=== PATIENT | female | born 1940 | race Caucasian/White ===

== ENCOUNTER 2023-02-23 10:54 | Emergency (ER) | payer MEDICARE, OTHER, SELFPAY ==
[2023-02-23 11:06] VITALS: BP 154/69; PULSE 67; RESP 18; TEMP 36.4; O2SAT 98; BMI 26.8
[2023-02-23 13:35] VITALS: BP 186/83; PULSE 75; O2SAT 97
--- NOTE | 2023-02-23 13:52 | CRLHL7_ITS ---
For Patients: As a result of the Century Cures Act, medical imaging exams and procedure reports are released immediately into your electronic medical record. You may view this report before your referring provider. If you have questions, please contact your health care provider. INDICATION: Right neck mass. TECHNIQUE: CT of the neck from the skull base to the thoracic inlet following administration of cc iodinated intravenous contrast. COMPARISON: None available. FINDINGS: Streak artifact emanating from dental amalgam limits evaluation of adjacent structures. Within this limitation, no suspicious mucosal asymmetry or enhancement. Masslike density in the right medial supraclavicular region (series 3, image 61) is favored to represent tortuosity of the right internal jugular vein with mixing artifact. Small volume air layers within the ante dependent internal jugular veins, likely iatrogenic related to intravenous injection. No pathologically enlarged cervical lymph nodes. Normal parotid and submandibular glands. Unremarkable thyroid. The lung apices are clear. The major vascular structures are normal in appearance. No suspicious osseous lesion is identified. IMPRESSION: 1. Masslike density right medial supraclavicular region is favored to represent tortuosity of the right internal jugular vein with contrast mixing artifact. Consider ultrasound correlation to definitively exclude a lesion immediately adjacent to the internal jugular vein. 2. Otherwise, no suspicious soft tissue mass or pathologically enlarged cervical lymph node. Please note that all CT scans at this facility use dose modulation, iterative reconstruction, and/or weight-based dosing when appropriate to reduce radiation dose to as low as reasonably achievable. Dictated by Rodrick Ng MD @ 02/23/2023 3:31:29 PM (Electronically Signed)
[2023-02-23 14:17] LABS: Basophils Percent Auto 0.5 % (0.0-3.0); Hematocrit 46.5 % (33.0-51.0); Hemoglobin* 15.2 gm/dL (12.0-16.0); Lymphocytes Percent Auto 25.5 % (20-44); Mean Corpuscular HGB Conc 33 gm/dL (32-36); Mean Corpuscular Hemoglobin 29 pg (26-34); Mean Corpuscular Volume 90 fL (80-100); Monocytes Percent Auto 9.3 % (0.0-11.0); Neutrophils Percent Auto 62.7 % (42.0-72.0); Platelet Count* 170 K/uL (140-440); RDW Coefficient of Variation % 13.1 % (11.5-15.5); Red Blood Count 5.19 m/uL (4.00-5.20)
[2023-02-23 14:21] LABS: Slide Review Reflex No
[2023-02-23 14:31] LABS: Chloride* 106 mmol/L (96-114)
[2023-02-23 14:32] LABS: Sodium* 138 mmol/L (135-149)
[2023-02-23 14:34] LABS: Creatinine* 0.6 mg/dL (0.5-1.5); Est. Creatinine Clearance* 30.62; Estimated Glomerular Filt Rate 89 ml/min
[2023-02-23 14:35] LABS: Anion Gap 6 mEq/L (7-15); Blood Urea Nitrogen* 25 mg/dL (7-30); Carbon Dioxide* 26 mmol/L (20-32); Glucose* 74 mg/dL (60-115)
--- NOTE | 2023-02-23 14:57 | ED_ITS ---
HPI - General Adult General Date Seen: 02/23/23 Chief complaint: Ear/Nose/Throat Problem Stated complaint: Possible throat cancer Time Seen by Provider: 02/23/23 13:31 Source: patient Mode of arrival: ambulatory Limitations: no limitations History of Present Illness HPI narrative: Patient is an 82-year-old woman who tells me that she has been moving around quite a bit for the past few years with her son. They landed in [place] in November. She says since that time she has been having a sensation like something is growing in the right side of her throat up toward her ear. When asked if she is having difficulty swallowing she says ?not yet. Her weight has been stable. She does not have pain in the throat although she says sometimes her ear hurts a little bit. She smoked for many years, quit in 2012. She says that she has been wanting to get this checked out for several months but today was the 1st day that she could get to the hospital. She does not have primary care in the area, denies that she takes any medications or has any significant health history. Related Data Home Medications Medication Instructions Recorded Confirmed No Known Home Medications 02/23/23 02/23/23 Allergies Allergy/AdvReac Type Severity Reaction Status Date / Time codeine Allergy Verified 02/23/23 11:10 [facility] Social History Smoking Status: Former smoker What tobacco products do you use: cigarettes Smoking quit date/years: <= 15 years ago Do you use any of these nicotine containing products: None Second hand tobacco smoke exposure: No How often do you have a drink containing alcohol: 2-4 times a month How many standard drinks containing alcohol do you have on a typical day: 1 or 2 How often do you have six or more drinks on one occasion: Never AUDIT-C Alcohol total score: 2 Non-prescribed substance use: denies use Exam Narrative: Exam Narrative: Vital signs as noted above. In general, an alert, nontoxic woman. Voice is normal. Head: Normocephalic, atraumatic. Eyes: Pupils are equal reactive. Extraocular movements are full. Conjunctivae are normal. ENT: Mucous membranes are moist. Throat is normal. Neck: Neck is supple, she does have a firm nontender mass on the right side of her neck which does not seem to be significantly mobile. No overlying erythema, no fluctuance. No stridor. Heart: Regular rate and rhythm. No murmur or rub. Lungs: Clear bilaterally. No increased work of breathing, crackles or wheezes. Abdomen: Soft and nontender. No organomegaly. Extremities: Well perfused. No edema. No calf tenderness. Pulses intact. Neurologic: Patient is alert and oriented to person and place. Speech is fluent. Face is symmetric. Moves all extremities equally. Affect: Flat. Skin: Warm and dry. Well perfused. Const: Vital Signs, click to edit/add: Vital Signs - 24 hr 02/23/23 11:06 02/23/23 13:35 Temperature 97.6 F Pulse Rate [Pulse Oximeter] 67 75 Respiratory Rate 18 Blood Pressure [[facility]] 154/69 H 186/83 H Pulse Oximetry 98 97 Oxygen Delivery Me thod Room Air Room Air Documenting provider has reviewed patient's vital signs: yes Course Course ED Course: I elected to do a CT scan, so an IV was placed, CBC showed a white count of 4, normal platelets and normal hemoglobin and metabolic panel was within normal limits. Creatinine was 0.6. She went on have a CT scan with contrast. This is read by Radiology is not showing anything diagnostic of mass or malignancy. They note a ?masslike density near the right subclavian which they feel is likely due to a tortuous jugular vein. I went back and reexamined her, she still has that area that I felt earlier but on this exam she said that now she remembers that she has a device placed there from when she had blood clots to make sure that they did not go to her brain. This appears to be an old physical finding. I do not feel any other masses down closer to the subclavian, and I think overall it is reasonable to let her go home, I have encouraged primary care follow-up for reassessment and they can decide whether not to pursue an ultrasound at that time. Vital Signs Vital signs: Initial Vital Signs Temperature 97.6 F 02/23/23 11:06 Temperature Source Temporal Artery Scan 02/23/23 11:06 Pulse Rate 67 02/23/23 11:06 Respiratory Rate 18 02/23/23 11:06 Blood Pressure 154/69 H 02/23/23 11:06 Blood Pressure Mean 97 02/23/23 11:06 Blood Pressure Position Sitting 02/23/23 11:06 Pulse Oximetry 98 02/23/23 11:06 Oxygen Delivery Method Room Air 02/23/23 11:06 Vital Signs Temperature 97.6 F 02/23/23 11:06 Pulse Rate 67 02/23/23 11:06 Respiratory Rate 18 02/23/23 11:06 Blood Pressure 154/69 H 02/23/23 11:06 Pulse Oximetry 98 02/23/23 11:06 Oxygen Delivery Method Room Air 02/23/23 11:06 Temperature 97.6 F 02/23/23 11:06 Pulse Rate 75 02/23/23 13:35 Respiratory Rate 18 02/23/23 11:06 Blood Pressure 186/83 H 02/23/23 13:35 Pulse Oximetry 97 02/23/23 13:35 Oxygen Delivery Method Room Air 02/23/23 13:35 Medical Decision Making Lab Data Labs: Lab Results 02/23/23 Range/Units 14:11 WBC 4.00 L (4.50-11.00) K/uL RBC 5.19 (4.00-5.20) m/uL Hgb 15.2 (12.0-16.0) gm/dL Hct 46.5 (33.0-51.0) % MCV 90 (80-100) fL MCH 29 (26-34) pg MCHC 33 (32-36) gm/dL RDW Coeff of Rick 13.1 (11.5-15.5) % Plt Count 170 (140-440) K/uL Neut % (Auto) 62.7 (42.0-72.0) % Lymph % (Auto) 25.5 (20-44) % Beauregard % (Auto) 9.3 (0.0-11.0) % Eos % (Auto) 2.0 (0.0-7.0) % Baso % (Auto) 0.5 (0.0-3.0) % Neut # (Auto) 2.50 (1.7-7.0) K/uL Lymph # (Auto) 1.00 (0.90-2.90) K/uL Beauregard # (Auto) 0.40 (0.00-0.90) K/UL Eos # (Auto) 0.10 (0.00-0.50) K/uL Baso # (Auto) 0.00 (0.00-0.30) K/uL Abs Immat Gran (auto) 0.00 (0.00-0.30) K/uL Imm/Tot Granulo (auto) 0.0 % Sodium 138 (135-149) mmol/L Potassium 4.0 (3.6-5.1) mmol/L Chloride 106 (96-114) mmol/L Carbon Dioxide 26 (20-32) mmol/L Anion Gap 6 L (7-15) mEq/L BUN 25 (7-30) mg/dL Creatinine 0.6 (0.5-1.5) mg/dL Estimated Creat Clear 30.62 Estimated GFR 89 ml/min Glucose 74 (60-115) mg/dL Calcium 9.0 (8.4-10.6) mg/dL Discharge Plan Discharge Clinical Impression: Globus sensation Patient Disposition: Home, Self-Care Condition: Stable Additional Instructions: Imaging today is fairly reassuring. Recommend primary care follow-up for recheck and decision as to whether any other workup is needed. Prescriptions: No Action No Known Home Medications Follow Up/Referrals: Provider,Not a Local [Primary Care Provider] - Stand Alone Forms: [facility] Info Instructions
== END 2023-02-23 16:35 | disposition home or self-care (01) ==
PROVIDERS: Emergency Provider Emergency Medicine
DX: F45.8 Other somatoform disorders (principal)
CPT/HCPCS: 36415; 70491; 80048; 85025; 99283; 99284; Q9967